=== PATIENT | female | born 1995 | race Hispanic/Latino ===

== ENCOUNTER 2019-04-30 17:04 | Day surgery (SDC) | payer OTHER ==
[2019-04-30] MEDS ORDERED: hydrALAZINE 20 MG/ML VIAL SLOW IVP PRN (17:09)
[2019-04-30 17:43] VITALS: BP 129/64; TEMP 98.4; BMI 38.2
[2019-04-30 18:47] LABS: Amnisure Test No Membranes Rupture (No Rupture)
[2019-04-30 18:48] LABS: Amnisure Internal Control QC ACCEPTABLE (ACCEPTABLE)
--- NOTE | 2019-04-30 19:06 | PDOC.LDHP ---
Labor and Delivery H&P Chief complaint: loss of fluid HPI: 24 y/o at 34w6d, patient of Dr. Wood, presents with ?LOF. Patient reports brown/yellow tinged fluid leaking today. Denies VB, ctx, or decreased FM. ROS neg for HEENT, cv, pulm, gi, gu, neuro, psych, skin, musculoskeletal or constitutional symptoms other than mentioned above. OB History Details: 1 prior LTCS Current complications: none Past Medical History: None Previous surgical history: low tranverse CS Allergies/Adverse Reactions: Allergies Allergy/AdvReac Type Severity Reaction Status Date / Time No Known Allergies Allergy Unverified 04/30/19 17:45 Social history: none - Physical Exam Vital signs reviewed and normal: yes General: NAD, resting Lungs: nonlabored breathing Abdomen: gravid Extremeties: no edema FHT: category 1 (140s, mod variability, + accels, no decels) Gravette contractions every: occasional - Vaginal Exam cm dilated: 0 (large amount of thick, white discharge on SSE, vis closed) - Assessment 24 y/o at 34w6d with no e/o SROM. VP3 pending but suspect yeast. status reassuring with reactive NST. - Plan -: D/c home with precautions. Advised to keep all appointments. VP3 pending, will call [phone] if treatment is indicated.
== END 2019-04-30 19:25 | disposition home health service (06) ==
LOC: EEVIPCON 17:04 → L&D/OP 17:04
PROVIDERS: ATTEND Family Medicine
DX: O98.813 Other maternal infectious and parasitic diseases complicating pregnancy, third trimester (principal); B37.3 Candidiasis of vulva and vagina; O23.593 Infection of other part of genital tract in pregnancy, third trimester; B96.89 Other specified bacterial agents as the cause of diseases classified elsewhere; O34.211 Maternal care for low transverse scar from previous cesarean delivery; Z3A.34 34 weeks gestation of pregnancy
CPT/HCPCS: 84112; 87480; 87510; 87660; 99285

== ENCOUNTER 2019-05-30 10:22 | Inpatient (IN) | payer OTHER ==
[2019-05-30] MEDS ORDERED: Bicitra 30 ML UDCUP PO SCH (10:36)
[2019-05-30] MEDS ORDERED: hydrALAZINE 20 MG/ML VIAL SLOW IVP PRN ×2 (10:36→15:34)
[2019-05-30] MEDS ORDERED: CEFAZOLIN 2 GM in Premix Bag 1 BAG IVPB SCH (10:36)
[2019-05-30] MEDS ORDERED: Promethazine HCl 25 MG/ML VIAL IM PRN ×3 (10:36→15:34)
[2019-05-30] MEDS ORDERED: Ondansetron PF 4 MG/2 ML Vial IVP PRN ×3 (10:36→15:34)
[2019-05-30 10:39] VITALS: BMI 38.5
[2019-05-30 11:18] LABS: Mean Corpuscular HGB CONC 33.5 g/dL (32.0-36.0); Mean Corpuscular Volume 83.7 fL (78.0-98.0); Mean Platelet Volume 7.7 fL (7.4-10.4); Platelet Count 283 thou/uL (130-400); RBC Distribution Width 13.1 % (11.5-14.5); Red Blood Cell (RBC) Count 4.28 mill/uL (4.20-5.40); White Blood Cell (WBC) Count 9.7 thou/uL (4.8-10.8)
[2019-05-30] MEDS ORDERED: Bicitra 30 ML UDCUP ONE (11:39)
[2019-05-30] MEDS: Lactated Ringer's 1,000 ML IV SCH ×2 (11:43→21:17)
[2019-05-30] MEDS ORDERED: MORPHINE 5 MG/10 ML PF VIAL ONE (12:07)
[2019-05-30] MEDS ORDERED: EPHEDRINE 25 MG/5 ML SYRINGE ONE (12:08)
[2019-05-30] MEDS ORDERED: Ondansetron PF 4 MG/2 ML Vial ONE (12:08)
[2019-05-30] MEDS ORDERED: Oxytocin 10 UNITS/ML VIAL ONE ×2 (12:08→13:14)
[2019-05-30] MEDS ORDERED: Dexamethasone 4 mg/ml Vial ONE (12:08)
[2019-05-30 12:11] LABS: HBSAg Index 0.11 S/CO (0-0.99); Hep B Surf Ag Non-Reactive S/CO (NonReactive); Syphilis Antibody Nonreactive (Nonreactive); Syphilis Antibody Index 0.05 S/CO (<1.00 Non-Reactive)
[2019-05-30] MEDS ORDERED: PHENYLEPHRINE-NS 100 MCG/ML 10 ML SYRINGE ONE (12:31)
[2019-05-30] MEDS ORDERED: Naloxone HCl 0.4 mg/ml Vial IV PRN (14:05)
[2019-05-30] MEDS ORDERED: diphenhydrAMINE 50 MG/ML VIAL IVP PRN (14:05)
[2019-05-30] MEDS ORDERED: Ketorolac Tromethamine 30 MG/ML VIAL IVP PRN ×2 (14:05→14:21)
[2019-05-30] MEDS ORDERED: Promethazine HCl 25 MG SUPP PR PRN (14:05)
[2019-05-30] MEDS ORDERED: Naloxone HCl 0.4 mg/ml Vial IVP PRN ×2 (14:05)
[2019-05-30] MEDS ORDERED: Communication Order-Pharmacy FS SCH (14:15)
[2019-05-30] MEDS ORDERED: Ketorolac Tromethamine 30 MG/ML VIAL ONE (14:52)
[2019-05-30] MEDS ORDERED: Adacel (T-DAP) 0.5 ML SYRINGE IM ONE (15:34)
[2019-05-30] MEDS ORDERED: NS / Oxytocin 40 units/1000ml 1,000 ML IV SCH (15:34)
[2019-05-30] MEDS ORDERED: Bisacodyl 10 MG SUPP PR PRN (15:34)
[2019-05-30] MEDS ORDERED: diphenhydrAMINE 25 MG CAP PO PRN (15:34)
[2019-05-30] MEDS ORDERED: Lanolin Ointment 7 GM TUBE TOP PRN (15:34)
[2019-05-30] MEDS ORDERED: Ketorolac Tromethamine 30 MG/ML VIAL IVP SCH (18:00)
[2019-05-30] MEDS: Simethicone Chewable 80 MG TAB PO PRN (21:17)
[2019-05-30] MEDS: Docusate Calcium (SURFAK) 240 MG CAP PO SCH (21:18)
[2019-05-30] MEDS: Ketorolac Tromethamine 30 MG/ML VIAL IVP SCH (21:19)
[2019-05-30] MEDS: Ferrous Sulfate 325 MG TAB PO SCH (21:22)
[2019-05-31] MEDS ORDERED: HYDROcodone/Acetaminophen 5/325 mg Tablet PO PRN (02:15)
[2019-05-31] MEDS ORDERED: Meperidine HCl/PF 25 MG/ML VIAL IM PRN (02:15)
[2019-05-31] MEDS: Ketorolac Tromethamine 30 MG/ML VIAL IVP SCH ×2 (03:26→09:45)
[2019-05-31] MEDS: Simethicone Chewable 80 MG TAB PO PRN ×2 (03:27→17:14)
[2019-05-31 07:08] LABS: Hemoglobin 9.2 g/dL (12.0-16.0); Mean Corpuscular HGB CONC 33.5 g/dL (32.0-36.0); Mean Corpuscular Hemoglobin 28.5 pg (27.0-31.0); Mean Platelet Volume 7.5 fL (7.4-10.4); Platelet Count 245 thou/uL (130-400); RBC Distribution Width 13.1 % (11.5-14.5); Red Blood Cell (RBC) Count 3.23 mill/uL (4.20-5.40); White Blood Cell (WBC) Count 10.8 thou/uL (4.8-10.8)
[2019-05-31] MEDS: Ferrous Sulfate 325 MG TAB PO SCH ×2 (09:42→21:13)
[2019-05-31] MEDS: Prenatal Vitamin 1 TAB PO SCH (09:43)
[2019-05-31] MEDS: Docusate Calcium (SURFAK) 240 MG CAP PO SCH ×2 (09:43→21:14)
[2019-05-31] MEDS: Ibuprofen 800 MG TAB PO SCH ×3 (13:17→21:13)
[2019-05-31] MEDS: HYDROcodone/Acetaminophen 5/325 mg Tablet PO PRN (17:12)
[2019-06-01] MEDS: Ibuprofen 800 MG TAB PO SCH ×2 (05:47→13:42)
--- NOTE | 2019-06-01 08:26 | PDOC.OPDEL ---
OB Operative/Delivery Note Delivery Dr/Surgeon: Israel Assist: Liz Pre-Delivery Diagnosis: scheduled section Procedure/Post Delivery Dx: repeat low transverse CS Weeks gestation: 39 (39.1) Anesthesia: spinal - Findings A Sex: female Weight: 3.466 kg - 1 min: 8 - 5 min: 8 - Additional Findings/Plan Placenta delivered: manual removal findings: low transverse hysterotomy without extension, normal uterus, normal tubes, normal ovaries Estimated blood loss: 667 mL Compilations/Other Findings: Date of Procedure: 05/30/2019 Primary surgeon: Dr. Eric Wood [employer] Surgeon: Dr. Latasha Hill Procedure: Repeat low transverse caesarean section Preoperative Diagnosis: 1. Term intrauterine 2. Previous x1 Postoperative Diagnosis: 1. Term IUP, delivered 2. Previous x1 Anesthesia: spinal Indications: The patient is a 24 year old female at 39.1 weeks gestation who presents for a repeat scheduled . Procedure in Detail: After risks, benefits, and alternatives were explained to the patient, she gave informed consent. Pre-operative antibiotics included Cefazolin 2 gram IV. The patient was taken to the operating room and spinal anesthesia was initiated. She was placed in the supine position with a left tilt and prepped and draped in usual sterile fashion. A Pfannenstiel incision was made with a scalpel along previous scar and carried down to the level of the fascia which was sharply nicked. The fascial cut was extended bilaterally with Rodriguez sissors. The inferior and superior edges of the cut fascial edges were elevated with Gena clamps and the underlying rectus muscles were sharply and bluntly dissected free. The recti were divided using hemostats and rodriguez scissors and retracted manually. The peritoneum was entered bluntly and retracted manually. Bladder blade was placed. A low transverse score was made with the scalpel and the uterus was entered in the midline with the scalpel. Clear fluid was seen. The hysterotomy was extended manually. The infant was noted to be vertex and was easily delivered by fundal pressure. Mouth and nares were bulb suctioned. Cord clamped and cut and grossly normal female was handed to waiting nurse. Cord blood was obtained. Placenta was manually extracted, found to be intact with 3 vessel cord and discarded. The uterus was externalized and the endometrium was curetted with a dry lap. The bladder blade was replaced and the uterus was closed with a running locking #1 Monocryl suture. Following this hemostasis was noted. The abdomen was irrigated with saline and suctioned free of clots. Seprafilm was placed. The uterus was internalized and the hysterotomy was again noted to be hemostatic. The peritoneum was closed in a running, non-locking fashion using 3-0 Vicryl. The fascia was closed with a running non-locking 0-PDS suture. The subcutaneous tissue was irrigated and bleeders were cauterized. The subcutaneous tissue was brought together using 3-0 Vicryl in three interrupted sutures. The skin was approximated with salo and a pressure dressing was placed. All counts were correct. The patient tolerated the procedure well and was taken to the recovery room in stable condition. Estimated Blood Loss: 667 ml Complications: None Specimens: Cord blood sent to lab for blood type Findings: Grossly normal female with apgars of 8/8. Grossly normal placenta with 3 vessel cord discarded. Drains: Arshad to gravity draining clear urine Post delivery plan: routine recovery
[2019-06-01] MEDS: Docusate Calcium (SURFAK) 240 MG CAP PO SCH (09:00)
[2019-06-01] MEDS: Prenatal Vitamin 1 TAB PO SCH (09:00)
[2019-06-01] MEDS: Ferrous Sulfate 325 MG TAB PO SCH (09:00)
[2019-06-01] MEDS: HYDROcodone/Acetaminophen 5/325 mg Tablet PO PRN (15:58)
[2019-06-01 16:56] VITALS: BP 135/85; TEMP 98.2
== END 2019-06-01 17:05 | disposition home or self-care (01) | DRG 788 ==
LOC: EEVIPCON 10:22 → L&D 10:22 → 3SW 16:22
PROVIDERS: ADMIT Family Medicine; ATTEND Family Medicine
PROC: 10D00Z1 Extraction of Products of Conception, Low, Open Approach (ICD-10-PCS; principal; 2019-05-30)
PROC: 3E0P05Z Introduction of Adhesion Barrier into Female Reproductive, Open Approach (ICD-10-PCS; 2019-05-30)
DX: O34.211 Maternal care for low transverse scar from previous cesarean delivery (principal); Z3A.39 39 weeks gestation of pregnancy; Z37.0 Single live birth
CPT/HCPCS: 36415; 51702; 85027; 86780; 86850; 86900; 86901; 87340; J0690; J1100; J1885; J2274; J2405; J2590; Q0163